=== PATIENT | male | born 1995 | race American Indian/Alaskan Native ===

== ENCOUNTER 2019-04-02 13:01 | Emergency (ER) | payer OTHER ==
[2019-04-02] MEDS ORDERED: BOOSTRIX IM ONE (13:22)
--- NOTE | 2019-04-02 13:24 | Event Note ---
ED Screening Note Date of service: 04/02/19 Time: 13:21 ED Screening Note: 23 y/o male comes in for laceration to left knee at work. Not sure when his last tetanus. This initial assessment/diagnostic orders/clinical plan/treatment(s) is/are subject to change based on patients health status, clinical progression and re- assessment by fellow clinical providers in the ED. Further treatment and workup at subsequent clinical providers discretion. Patient/guardian urged not to elope from the ED as their condition may be serious if not clinically assessed and managed. Initial orders include:
[2019-04-02] MEDS ORDERED: XYLOCAINE 1% 20 mL ONE (13:41)
--- NOTE | 2019-04-02 13:57 | Emergency Department Report ---
ED Laceration HPI - HPI Chief Complaint: Wound/Laceration Stated Complaint: LAC TO LEG W/CHAINSAW Time Seen by Provider: 04/02/19 13:46 Occurred When: Today (1 hour ago) Location: Lower Extremity Severity: mild Tetanus Status: Not up to Date Laceration Symptoms: No Foreign Body Sensation, No Numbness, No Weakness, No Pain Other History: chainsaw to L knee. tetanus updated today ED Review of Systems ROS: Stated complaint: LAC TO LEG W/CHAINSAW Other details as noted in HPI Comment: All other systems reviewed and negative ED Past Medical Hx - Past Medical History Previous Medical History?: No - Surgical History Past Surgical History?: No - Social History Smoking Status: Current Every Day Smoker Substance Use Type: Marijuana Laceration Physical Exam - Exam General: Vital signs noted. No distress. Alert and acting appropriately. Wound Length (cm): 8 Laceration Location: Lower Extremity (L knee, superficial, not into joint, measuring about 8 cm) Laceration Exam: Yes Normal Distal CMS, No Foreign Body, No Exposed Tendon, Vessel, or Nerve, No Tendon Injury ED Course Vital Signs 04/02/19 13:21 Temperature 98.1 F Pulse Rate 102 H Respiratory 20 Rate - Laceration /Wound Repair L knee Wound Location: lower extremity Wound's Depth, Shape: superficial, linear Wound Explored: clean Irrigated w/ Saline (ccs): 100 Betadine Prep?: Yes Anesthesia: 1% Lidocaine Volume Anesthetic (ccs): 3 Wound Debrided: minimal Wound Repaired With: sutures Suture Size/Type: 3:0, nylon Number of Sutures: 10 Layer Closure?: No Sterile Dressing Applied?: Yes Progress: tolerated well ED Medical Decision Making - Medical Decision Making minor leg lac repaired - Differential Diagnosis leg lac Critical care attestation.: If time is entered above; I have spent that time in minutes in the direct care of this critically ill patient, excluding procedure time. ED Disposition Clinical Impression: Leg laceration Qualifiers: Encounter type: initial encounter Laterality: left Qualified Code(s): S81.812A - Laceration without foreign body, left lower leg, initial encounter Disposition: TO HOME OR SELFCARE Is pt being admited?: No Condition: Good Instructions: Laceration (ED) Additional Instructions: Suture removal 10-14 days Referrals: KARLOS HANSEN MD [Primary Care Provider] - 3-5 Days Time of Disposition: 13:56
== END 2019-04-02 14:04 | disposition home or self-care (01) ==
LOC: ED 13:01
DX: S81.812A Laceration without foreign body, left lower leg, initial encounter (principal); F17.200 Nicotine dependence, unspecified, uncomplicated; W27.8XXA Contact with other nonpowered hand tool, initial encounter; Y93.89 Activity, other specified; Y92.89 Other specified places as the place of occurrence of the external cause; Y99.8 Other external cause status
CPT/HCPCS: 90471; 90715; 99282